=== PATIENT | male | born 1965 | race Caucasian/White ===

== ENCOUNTER → 2017-04-18 | Outpatient (CLI) | payer OTHER ==
--- NOTE | 2017-04-18 11:15 | DIAGNOSTIC IMAGING REPORT ---
TWO VIEW CHEST CLINICAL HISTORY: Cough. FINDINGS: PA and lateral chest radiographs are obtained. No prior studies are available for comparison at the time of dictation. The heart is top normal for projection. The mediastinal contour is within normal limits. There is mild elevation of the right hemidiaphragm. Calcified granulomas are seen in the right upper lobe. No airspace consolidation or pleural effusion is seen. There is no pneumothorax. The bony thorax appears intact. IMPRESSION: No active disease in the chest. Electronically signed by: Leandro Ramirez M.D. 04/18/2017 11:14 AM Dictated Date/Time: 04/18/2017 11:13 AM
== END | disposition home or self-care (01) ==
LOC: C.RAD1850 10:59
PROVIDERS: ATTEND Physician Assistant
DX: R05 Cough (principal)